=== PATIENT | female | born 1995 | race African-American/Black ===

== ENCOUNTER 2019-02-27 22:09 | Emergency (ER) | payer MEDICAID ==
[~2019-02-27] VITALS: Ht 157.5 cm; Wt 57.0 kg
[2019-02-28] MEDS ORDERED: DIPHENHYDRAMINE 25MG CAPSULE PO ONE (00:45)
[2019-02-28] MEDS ORDERED: FAMOTIDINE 20MG TABLET PO ONE (00:45)
[2019-02-28] MEDS ORDERED: PREDNISONE 20MG TABLET PO ONE (00:45)
[2019-02-28 01:39] LABS: CLARITY URINE CLEAR (CLEAR); COLOR URINE YELLOW (YELLOW); KETONES URINE NEGATIVE (NEGATIVE); LEUKOCYTE ESTERASE URINE NEGATIVE (NEGATIVE); NITRITE URINE NEGATIVE (NEGATIVE); OCCULT BLOOD URINE NEGATIVE (NEGATIVE); PROTEIN URINE NEGATIVE (NEGATIVE); SPECIFIC GRAVITY URINE 1.026 (1.005-1.030); UROBILINOGEN URINE 0.2 E.U./dL (0.2-1.0)
[2019-02-28 03:18] VITALS: BP 118/74
== END 2019-02-28 03:25 | disposition home or self-care (01) ==
LOC: ER 22:09
DX: T78.1XXA Other adverse food reactions, not elsewhere classified, initial encounter (principal); J45.909 Unspecified asthma, uncomplicated; Z98.890 Other specified postprocedural states; Z91.018 Allergy to other foods; X58.XXXA Exposure to other specified factors, initial encounter
CPT/HCPCS: 76830; 76856; 81003; 81025; 87210; 99284; J7512; Q0163

== ENCOUNTER 2024-12-12 17:58 | Emergency (ER) | payer SELFPAY ==
[~2024-12-12] VITALS: Ht 157.5 cm; Wt 77.0 kg
[2024-12-12 18:02] VITALS: O2SAT 98
[2024-12-12 19:30] LABS: CLARITY URINE CLEAR (CLEAR); COLOR URINE YELLOW (YELLOW); GLUCOSE URINE NEGATIVE (NEGATIVE); KETONES URINE TRACE (NEGATIVE); LEUKOCYTE ESTERASE URINE NEGATIVE (NEGATIVE); NITRITE URINE NEGATIVE (NEGATIVE); OCCULT BLOOD URINE NEGATIVE (NEGATIVE); PH URINE 6.0 (4.5-8.0); PROTEIN URINE NEGATIVE (NEGATIVE); SPECIFIC GRAVITY URINE 1.031 (1.005-1.030); UROBILINOGEN URINE 1.0 E.U./dL (0.2-1.0)
[2024-12-12 20:29] LABS: BASOPHILS % 1.0 % (0.0-2.0); EOSINOPHILS % 0.8 % (0.0-5.0); HEMATOCRIT. 40.2 % (36.0-48.0); HEMOGLOBIN. 13.8 g/dL (12.0-16.0); LYMPHOCYTES % 38.9 % (20.0-50.0); MEAN PLATELET VOLUME 6.7 fl (7.4-10.4); MONOCYTES % 6.3 % (2.0-8.0); NEUTROPHILS % 53.0 % (40.0-76.0); PLATELET 345 x1000/uL (130-400); RED BLOOD CELL COUNT 4.55 mill/uL (4.2-5.4); RED CELL DISTRIBUTION WIDTH 13.1 % (11.6-14.6)
[2024-12-12 20:42] LABS: CREATININE 0.7 mg/dL (0.6-1.0)
[2024-12-12 20:43] LABS: UREA NITROGEN BLOOD 12 mg/dL (9-23)
[2024-12-12 20:44] LABS: ASPARTATE AMINOTRANSFERASE 18 IU/L (<34)
[2024-12-12 20:45] LABS: BILIRUBIN DIRECT 0.1 mg/dL (<=3.0); BILIRUBIN TOTAL 0.5 mg/dL (0.1-1.0); PROTEIN TOTAL 7.3 g/dL (6.0-8.3)
[2024-12-12] MEDS ORDERED: IBUP-2029 MT (23:17)
[2024-12-12 23:32] VITALS: BP 126/80; PULSE 70; RESP 18; TEMP 36.8; O2SAT 96
== END 2024-12-12 23:35 | disposition home or self-care (01) ==
LOC: ER 17:58
DX: B34.9 Viral infection, unspecified (principal); R10.2 Pelvic and perineal pain; J45.909 Unspecified asthma, uncomplicated
CPT/HCPCS: 36415; 76830; 76856; 80048; 80076; 81003; 81025; 84702; 85025; 99284